=== PATIENT | female | born 1945 | race Caucasian/White ===

== ENCOUNTER 2021-08-19 06:49 | Inpatient (IN) ==
--- NOTE | 2021-08-09 16:07 | Anesthesiology Consultation ---
Date of Service August 09, 2021 Assessment & Plan (1) Encounter for pre-operative examination: Chart Review Chart Review: Acceptable Risk for Surgery (pending preop Covid testing results ) and Patient NOT seen in Pre Admission Testing Per nursing assessment 08-29, patient denies any recent travel. No known COVID infection in the past 90 days. Patient is fully vaccinated for COVID. No known Covid positive exposures or Covid related symptoms. Preop Covid testing scheduled 08/17/21= will await results Per cardio letter 04/06/2021 = patient is low to moderate risk for cardiac complications during proposed surgery. Optimal cardiac monitoring is required during the procedure. Patient seen by PCP 03/23/2021 = seen for preoperative examination. Patient reported new onset chest pain at preop appointment. Chest pain is since resolved. Last nuclear stress test in June 2020 was normal. Patient will need cardiology clearance/optimization prior to surgery. Based on patient's past medical history and RCRI 1 which is a 6% 30-day risk of [place], , cardiac arrest. (Did speak with patient on 08/09/21- no recent chest pain or cardiac issues- feeling well- recent ECHO done per surgeon's request per patient) History Surgery Operation Date: 08/19/21 07:00 Proposed Procedures p Right Total Knee Arthroplasty - Cosme Christine MD Height/Weight Height: 5 ft 7 in Weight: 97.522 kg Allergies Allergy/AdvReac Type Severity Reaction Status Date / Time penicillin G Allergy Mild rash Verified 08/09/21 09:52 Sulfa (Sulfonamide Allergy Mild rashes Verified 08/09/21 09:52 Antibiotics) Medications Home Medications Medication Instructions Recorded Confirmed Last Taken flecainide 50 mg tablet 50 mg PO BID tab 08/11/20 08/09/21 Unknown furosemide 20 mg tablet 20 mg PO DAILY PRN 08/11/20 08/09/21 Unknown metoprolol succinate 25 mg 25 mg PO QAM 08/11/20 08/09/21 Unknown tablet,extended release 24 hr rivaroxaban 20 mg tablet (Xarelto) 20 mg PO QAM 03/16/21 08/09/21 Unknown meloxicam 7.5 mg tablet 7.5 mg PO QAM #30 tab 06/30/21 08/09/21 Unknown Past Medical History Medical History (Updated 08/09/21 @ 16:21 by Berna Neville PA-C) Atrial fibrillation On Xarelto/Flecainide daily---follows with Dr. Duran History of COVID-19 Diagnosed 03/2020 @ [facility] [place]--severe diarrhea/loss of appetite/loss of taste/headache/cough/dehydration--no issues now HTN (hypertension) Controlled, stable per pt On anticoagulant therapy Xarelto daily Vertigo - Chronic per PCP note, improved with physical therapy per pt, occasional intermittent dizziness and imbalance with positional changes - Stable at this time per patient Past Family History Family History Mother Heart disease Breast cancer Hypertension Father Heart disease Hypertension Other No family history of adverse response to anesthesia Denies family history of Diabetes Alzheimer disease Dementia Myocardial infarction Congenital kidney disease Lung cancer COPD (chronic obstructive pulmonary disease) Stroke Asthma Past Surgical History Surgical History H/O section History of bilateral cataract extraction History of colonoscopy History of dilatation and curettage History of left inguinal hernia repair History of tooth extraction History of umbilical hernia repair History of varicose vein ligation History of wisdom tooth extraction Social History Smoking Status: Never smoker Do You Dip or Chew Tobacco: No Hx Alcohol Use: Yes alcohol intake frequency: holidays/special occasions only Hx Substance Use: No substance use type: does not use Lab Results Anesthesia Preop Results Results Anesthesia Widget: WBC 6.06 K/uL (4.8-10.8) 07/22/21 Hgb 14.0 g/dL (12.0-16.0) 07/22/21 Hct 42.8 % (37-47) 07/22/21 Plt 284 K/uL (130-400) 07/22/21 Na 138 mmol/L (136-145) 07/22/21 K 3.9 mmol/L (3.5-5.1) 07/22/21 Cl 102 mmol/L (98-107) 07/22/21 CO2 30 mmol/L (21-32) 07/22/21 BUN 20 mg/dl (6-23) 07/22/21 Creat 0.82 mg/dl (0.6-1.2) 07/22/21 Glucose Level 115 mg/dl (70-99(Fasting)) H 07/22/21 PT 12.3 Seconds (9.0-12.0) H 07/22/21 PTT 34.3 Seconds (21.0-31.0) H 07/22/21 INR 1.2 (0.9-1.1) H 07/22/21 HA1c 5.2 % (4.5-5.6) 07/22/21 Urine Color Yellow 07/27/21 Urine Appearance Clear (Clear) 07/27/21 Urine pH 5.5 (4.5-7.5) 07/27/21 Urine Specific [place] 1.008 (1.000-1.030) 07/27/21 Urine Protein Negative (Negative) 07/27/21 Urine Glucose (UA) Negative (Negative) 07/27/21 Urine Ketones Negative (Negative) 07/27/21 Urine Blood Negative (Negative) 07/27/21 Urine Nitrite Negative (Negative) 07/27/21 Urine Bilirubin Negative (Negative) 07/27/21 Urine Urobilinogen Negative (Negative) 07/27/21 Urine Leukocyte Esterase Negative (Negative) 07/27/21 Testing Electrocardiogram Date: 03/19/21 Sinus bradycardia, rate 51 bpm. Left anterior fascicular block. Chest X-Ray Date: 03/19/21 No acute cardiopulmonary disease. Echocardiogram Date: 07/29/21 EF: 60% LV Function: normal Other Findings: + diastolic dysfunction (Grade 2) Left atrium moderately dilated. RV ventricle is mildly dilated with normal systolic function. Right atrium is mildly dilated. Mild to moderate MR. Mild TR. PASP = 35 mmHg. Mild PA. Stress Test Date: 07/07/20 Type: nuclear Good quality study. Normal gated MPI wall motion and EF. No significant rest or stress-induced MPI defects. No evidence of myocardial ischemia or infarct. Low risk study. No change from prior study dated 10/14/2016. Lexiscan stress EKG was negative for myocardial ischemia Other Testing Lower extremity arterial duplex 02/25/2021 = no significant stenosis to the right and left lower extremity arteries. Head CT 02/27/2021= No acute intracranial abnormality or significant interval change.
--- NOTE | 2021-08-15 09:19 | History & Physical Report ---
Date of Service August 15, 2021 Assessment & Plan (1) Primary osteoarthritis of right knee: Plan: Treatment options discussed with the patient. She has failed conservative measures. She has end-stage osteoarthritis. She would like to proceed with knee replacement. Risks, benefits and alternatives to surgery including but not limited to infection, DVT, pain, stiffness, need for revision surgery, damage to blood vessels, damage to nerves, PE, , were discussed with the patient and they wish to proceed. We will plan on Xarelto postoperatively for DVT prophylaxis. Plan on outpatient therapy postop. Due to insurance patient require full admit postop as opposed to observation. All questions answered. Patient will follow-up postop. History of Present Illness Chief Complaint: Right knee pain Primary Care Provider: NO PCP 75-year-old female with past medical history significant for A. fib, hypertension, who presents with longstanding right knee pain. She has failed conservative measures including therapy and injections. Pain is interfering with her daily activities. She would like to proceed with knee replacement. Patient denies headaches, sweats, fevers, chills, double vision, blurred vision, cough, sore throat, dysphagia, chest pain, sob, wheezing, n/v/d/c, numbness, tingling, fatigue, urinary symptoms, mood disorders. ROS positive for right knee pain and stiffness. Allergies Allergy/AdvReac Type Severity Reaction Status Date / Time penicillin G Allergy Mild rash Verified 08/09/21 09:52 Sulfa (Sulfonamide Allergy Mild rashes Verified 08/09/21 09:52 Antibiotics) Home Medications Medication Instructions Recorded Confirmed Type flecainide 50 mg tablet 50 mg PO BID tab 08/11/20 08/09/21 History furosemide 20 mg tablet 20 mg PO DAILY PRN 08/11/20 08/09/21 History metoprolol succinate 25 mg 25 mg PO QAM 08/11/20 08/09/21 History tablet,extended release 24 hr rivaroxaban 20 mg tablet (Xarelto) 20 mg PO QAM 03/16/21 08/09/21 History meloxicam 7.5 mg tablet 7.5 mg PO QAM #30 tab 06/30/21 08/09/21 Rx Past Med/Surg History Medical History (Updated 08/15/21 @ 09:23 by Jonathan Pena PA-C) Atrial fibrillation On Xarelto/Flecainide daily---follows with Dr. Duran History of COVID-19 Diagnosed 03/2020 @ [facility] [place]--severe diarrhea/loss of appetite/loss of taste/headache/cough/dehydration--no issues now HTN (hypertension) Controlled, stable per pt On anticoagulant therapy Xarelto daily Vertigo - Chronic per PCP note, improved with physical therapy per pt, occasional intermittent dizziness and imbalance with positional changes - Stable at this time per patient Surgical History H/O section History of bilateral cataract extraction History of colonoscopy History of dilatation and curettage History of left inguinal hernia repair History of tooth extraction History of umbilical hernia repair History of varicose vein ligation History of wisdom tooth extraction Family History Mother Heart disease Breast cancer Hypertension Father Heart disease Hypertension Other No family history of adverse response to anesthesia Denies family history of Diabetes Alzheimer disease Dementia Myocardial infarction Congenital kidney disease Lung cancer COPD (chronic obstructive pulmonary disease) Stroke Asthma Social History (System 07/09/21 @ 06:54 by Roxana Zavala) Smoking Status: Never smoker Second Hand Exposure: No; Hx Alcohol Use: Yes Hx Substance Use: No Preferred Language: Polish Communication Ability: Effective Hearing Ability: Normal Exterior Designer Required: No Beliefs That Will Affect Care: None marital status: Single Current Living Situation: Significant Other current occupational status: retired How many Children do You have: 0 Feels Safe at Home: Yes Childhood Exposure to Second-Hand Smoke: Yes caffeine: Yes Dental Care, Regularly: Yes Physical Activity Frequency: 1-2 Times per Week Seatbelt Use: always Sunscreen Use: No Assistive Devices: Cane and Glasses Review of Systems All systems reviewed & are unremarkable except as noted in HPI & below Physical Exam Constitutional: well developed and well nourished; no acute distress Eyes: PERRL, conjunctivae normal, anicteric sclerae ENMT: external ear and nose normal, oropharynx normal Neck: trachea midline, no thyromegaly Respiratory: normal respiratory effort, lungs clear to auscultation Cardiovascular: RRR, no murmur, no edema Musculoskeletal: Right knee: Varus alignment. Moderate effusion. Tenderness medial joint line and medial patellar facet as well as lateral patellar facet. Moderate swelling. Moderate crepitation. Positive Nida's, positive Elpidio's, laxity with valgus and varus stress test. Range of motion is 10 to 120 degrees. Skin: no rashes, warm and dry Neurologic: patellar DTR's 2+ bilat, sensation intact Psychiatric: A+Ox3, euthymic affect Results & Data ([facility]) Diagnostic Findings Right knee: [id number] medial compartment. There is mild subluxation of femur and tibia. She has periarticular osteophyte formation and subchondral sclerosis. There is tricompartmental degenerative changes.
[~2021-08-19 06:49] MED LIST: ACETAMINOPHEN 500 MG TAB PO SCH; BUPIVACAINE 0.5 % 5 MG/1 ML PF 10ML VIAL ONE; FAMOTIDINE 20 MG TAB PO SCH; GABAPENTIN 300 MG CAP PO SCH; LR 500ML BOLUS, THEN 15ML/HR IV SCH; METOCLOPRAMIDE HCL 10 MG TABLET PO SCH; ROPIVACAINE 0.5% 5 MG/ML 30 ML VIAL ONE; ROPIVACAINE 0.5% HCL/PF 150 MG, BUPIVACAINE 0.75% MPF 20 ML, EPINEPHrine 30MG/30ML (OR ... INSTIL SCH; TRANEXAMIC ACID 1,000 MG **IV Intra-op IV SCH; TRANEXAMIC ACID 1,000 MG **IV Pre-op IV SCH; VANCOMYCIN HCL 1,500 MG in SODIUM CHLORIDE 0.9% 500 ML IV SCH; dexAMETHasone 4 MG TAB PO SCH
[2021-08-19] MEDS ORDERED: ORTHO JOINT ANESTHETIC ONE (06:58)
[2021-08-19] MEDS ORDERED: fentaNYL citrate 100 MCG/2 ML VIAL ONE (07:30)
[2021-08-19] MEDS ORDERED: LIDOCAINE 2% 2 ML VIAL/AMP(20MG/ML) INFIL ONE (07:30)
[2021-08-19] MEDS ORDERED: MIDAZOLAM HCL 1 MG/ML 2ML VIAL ONE (07:30)
[2021-08-19] MEDS ORDERED: PROPOFOL IV EMULSION 10 MG/ML 20 ML VIAL IV ONE (07:30)
--- NOTE | 2021-08-19 07:32 | History & Physical Bridge Note ---
Date of Service August 19, 2021 History & Physical Bridge Note I have examined the patient, reviewed the History & Physical and in the interval since the performance of the History & Physical I have noted the following changes of clinical significance: no changes noted
[2021-08-19] MEDS ORDERED: DEXAMETHASONE SOD INJ 4 MG/ML VIAL ONE (07:37)
[2021-08-19] MEDS ORDERED: ATROPINE SULFATE 0.1 MG/ML 10ML SYR IV PRN (08:07)
[2021-08-19] MEDS ORDERED: fentaNYL citrate 100 MCG/2 ML VIAL IV PRN (08:07)
[2021-08-19] MEDS ORDERED: ePHEDrine sulfate 50 MG/ML AMP IV PRN (08:07)
[2021-08-19] MEDS ORDERED: ONDANSETRON INJ 2 MG/ML 2 ML VIAL IV PRN ×2 (08:07→12:50)
--- NOTE | 2021-08-19 11:18 | Operative Report ---
Post Operative Report Pre & Post Diagnosis Operation Date: 08/19/21 09:15 Pre-Op Diagnosis: Right Knee Osteoarthritis, obesity of the knee and thigh area Post-Op Diagnosis: Right Knee Osteoarthritis, obesity knee and thigh area I identified the patient and participated in the time-out.: Yes Procedure Operation Date: 08/19/21 09:15 Actual Procedures p Right Total Knee Arthroplasty(Right), superficial wound VAC, increased level difficulty due to obesity about the knee area. Cosme Christine MD Surgeon Cosme Christine MD Design Agent Roberto PADILLA Estimated Blood Loss 10 Findings Consistent with Post-Op Diagnosis Specimens Bone cuts Drains 2 Hemovac Anesthesia Type MAC Spinal Regional Complications none Disposition Disposition: Recovery Room Indications 75-year-old female progressive osteoarthritis in her right knee. Patient has tricompartmental osteoarthritis [id number] medial lateral compartments and patellofemoral joint with bone loss patella and medial compartment. Description of Procedure Patient was taken to the operating room placed supine on the operating table and anesthetized under spinal MAC regional block anesthesia. Exam under anesthesia demonstrated patient an obese knee obese thigh with thick fat overlying the knee. There is [id number] crepitation range of motion and no pseudolaxity but patient had significant hyperextension of the knee. A pneumatic tourniquet was placed about the obese thigh of the right lower extremity. The right lower extremity was prepped and draped in usual sterile fashion. The leg was elevated exsanguinated with an Esmarch bandage and the pneumatic tourniquet was raised to 350 mm mercury. An anterior incision was made across the right knee. The skin was incised longitudinally subcutaneous flaps were elevated and an incision was made through the medial retinaculum extending up into the mid third of the quadriceps tendon and extended down to the medial tibial tubercle. Intra- articular findings demonstrated severe tricompartmental osteoarthritis [id number] medial and lateral compartments due to subluxation. There was eburnated bone bone loss medial compartment bone loss patella with thinning of the patella. There are tricompartmental osteophytes. Chronic ACL tear. Chronic meniscal tears. The knee was exposed by excising the infrapatellar fat pad, excising the meniscal remnants . Any inflamed synovial tissue was resected. The fat pad over the anterior femur was resected for placement of the component in that area. The lateral synovial bands were release. The femur was exposed. The custom femoral cutting block was pinned in position. The distal femoral cutting block was applied. The distal femoral cut was made with the osc illating saw. The size 9, 4-in-1 cutting block was placed. The anterior and posterior chamfer cuts were made. The knee was extended and a subperiosteal peel lateral release was performed around the patella. The patella width was measured and width was reproduced using freehand cut technique. The 32 x 8.5 millimeter symmetrical patella was used. 3 drill holes are made for the pegs. The tibia was exposed. A custom tibial cutting block was positioned and drill holes were made for the cutting guide. Cutting guide was placed and the proximal cut was made with the oscillating saw. All osteophytes were resected. The lamina conveyor feeder was used to assess ligamentous balance and the ligaments were balanced in extension and flexion. The tibia was reexposed and measured for a size E tibial component. This was externally rotated in line with the tibial tubercle and the fixation pins were drilled. The proximal tibia was fashioned with the drill and punch. The size 9 CR femoral trial was inserted. The trial MC inserts were used. The 16 mm insert gave balanced ligaments through full range of motion. Patient still has some mild hyperextension but improved from her preoperative hyperextension. The patella tracked centrally. the trials were removed. The orthomix anesthetic cocktail was injected per protocol. The knee was then copiously irrigated with pulsatile lavage saline so lution. The final components were cemented with Refobacin bone cement. The final components were Vicente persona size now right femoral component, E right tibia, 16mm polyethylene insert, 32 x 8.5 symmetrical patella after the cement cured with the knee in full extension the Betadine soak was used per protocol. The knee joint was copiously irrigated with pulsatile lavage saline solution . 2 drains were brought out laterally and connected to a Hemovac. The quadriceps tendon and medial retinaculum were closed with interrupted [id number] #1 Vicryl sutures. The knee was taken through a full range of motion and repair was secure. There was some mild MCL laxity noted at about 20 degrees of flexion with full stability in extension and flexion and this was felt to be acceptable. The subcutaneous tissues were closed with 2-0 Vicryl sutures and skin was closed with pam. Sterile dressings were applied and the patient tolerated the procedure well. Roberto PADILLA my physician care team assistant who acted as my pharmacy technician assistant and participated in all aspects of the procedure. He assisted in soft tissue retraction, instrument management ,leg positioning, the closure and application superficial wound VAC and will participate in the postoperative care of the patient. I attest to the content of the Intraoperative Record and any orders documented therein. Any exceptions are noted below.
--- NOTE | 2021-08-19 12:27 | Anesthesiology Progress Note ---
Date of Service August 19, 2021 Anesthesia Post Procedure Vital Signs Vital Signs: Temp Pulse Pulse Resp BP Pulse Ox 08/19/21 12:25 97.9 F 51 L 17 131/77 93 08/19/21 12:15 58 L 20 135/84 95 08/19/21 12:05 50 L 17 124/68 95 08/19/21 11:55 52 L 15 122/67 97 08/19/21 11:49 97.7 F 58 L 17 123/54 L 97 08/19/21 07:27 98.4 F 60 22 150/85 H 99 Transfer of Care Handoff Completed per policy Notes Mental Status: alert / awake / arousable and participated in evaluation Patient Amnestic to Procedure: Yes Nausea / Vomiting: adequately controlled Pain: adequately controlled Airway Patency, RR, SpO2: stable & adequate BP & HR: stable & adequate Hydration State: stable & adequate Neuraxial Anesthesia: was administered and sensory block is resolving Anesthetic Complications: no major complications apparent and Pt Satisfied with anesthetic care
[2021-08-19] MEDS ORDERED: HYDROmorphone INJ 0.5 MG/0.5 ML SYR IV PRN (12:50)
[2021-08-19] MEDS ORDERED: oxyCODONE HCL IR 5 MG TAB (IMMEDIATE RELEASE) PO PRN (12:50)
[2021-08-19] MEDS ORDERED: MAGNESIUM HYDROXIDE SUSP 30 ML UDC PO PRN (12:50)
[2021-08-19] MEDS ORDERED: FUROSEMIDE 20 MG TAB PO PRN (12:50)
[2021-08-19] MEDS ORDERED: bisacodyL 10 MG SUPP PR PRN (12:50)
[2021-08-19] MEDS ORDERED: NALOXONE HCL 0.4 MG/1 ML VIAL/CARP IV PRN (12:50)
[2021-08-19] MEDS ORDERED: VANCOMYCIN CONSULT ACTIVE PRN (12:50)
[2021-08-19] MEDS: SODIUM CHLORIDE 0.9% 1000ML 1,000 ML IV SCH ×2 (13:41→22:34)
[2021-08-19] MEDS: ACETAMINOPHEN 500 MG TAB PO SCH ×2 (14:58→22:20)
[2021-08-19] MEDS: FLECAINIDE ACETATE 100 MG TABLET PO SCH (20:19)
[2021-08-19] MEDS: SENNA 8.6 MG TAB PO SCH (20:19)
[2021-08-19] MEDS: DOCUSATE SODIUM 100 MG CAP PO SCH (20:19)
[2021-08-19] MEDS ORDERED: VANCOMYCIN HCL 1,500 MG in SODIUM CHLORIDE 0.9% 500 ML IV SCH (22:00)
[2021-08-20] MEDS: ACETAMINOPHEN 500 MG TAB PO SCH ×3 (06:12→21:29)
[2021-08-20 07:11] LABS: Hematocrit (blood only) 33.3 % (37-47); Hemoglobin 11.1 g/dL (12.0-16.0); Mean Corpuscular Hemoglobin 32.3 pg (25-34); Mean Corpuscular Hgb Conc 33.3 g/dL (32-36); Mean Corpuscular Volume 96.8 fL (80-100); Mean Platelet Volume 9.8 fL (7.4-10.4); Platelet Count 202 K/uL (130-400); RDW Coefficient of Variation 12.6 % (11.5-14.5); RDW Standard Deviation 44.7 fL (36.4-46.3); Red Blood Count 3.44 M/uL (4.2-5.4); White Blood Count 10.74 K/uL (4.8-10.8)
[2021-08-20 07:39] LABS: BUN Creatinine Ratio 26.2 (10-20); Calcium 8.5 mg/dl (8.5-10.1); Creatinine Clr Calc Pharmacy 89.2 ml/min; Est GFR (African American) 100.7 ml/min; Est GFR (Non-African American) 86.8 ml/min
[2021-08-20] MEDS: FLECAINIDE ACETATE 100 MG TABLET PO SCH ×2 (08:23→21:28)
[2021-08-20] MEDS: RIVAROXABAN 10 MG TABLET PO SCH ×2 (08:23→17:19)
--- NOTE | 2021-08-20 08:23 | Orthopedic Progress Note ---
Date of Service August 20, 2021 Assessment & Plan (1) Primary osteoarthritis of right knee: Plan: Postop day 1 status post right total knee arthroplasty PT/OT protocols. Weightbearing as tolerated. DVT prophylaxis-rivaroxaban p.o. daily, SCDs, SAMI richards. Pain management as written. DC planning-patient is planning for outpatient PT upon discharge. Possible discharge home today if patient's pain control remains adequate and physical therapy progression. Admission and Anticipated Discharge Date Admission Date: August 19, 2021 Subjective Postop day 1 Patient sitting up in bed awake and alert. She is feeling well today. Minimal to no discomfort this morning. She denies shortness of breath, chest pain, lightheadedness. Physical Exam Physical Exam: Dressings are clean, dry, and intact. Calves are soft and nontender. Neurovascular is intact. Toes are mobile. She has good dorsiflexion and plantarflexion of the right foot. She has had approximately 100 mL of drainage from her Hemovac drain from the previous shift. Results & Data ([facility]) Vital Signs (Past 12 Hours) Vital Signs Temp Pulse Resp BP Pulse Ox 08/20/21 07: 36.7 C 67 16 135/79 90 08/20/21 02:50 37.0 C 67 16 101/65 92 08/19/21 22:53 36.8 C 54 L 16 122/83 93 08/19/21 20:51 36.5 C 57 L 16 106/63 92 Laboratory Results Laboratory Results WBC 10.74 K/uL (4.8-10.8) 08/20/21 07:01 RBC 3.44 M/uL (4.2-5.4) L 08/20/21 07:01 Hgb 11.1 g/dL (12.0-16.0) L 08/20/21 07:01 Hct 33.3 % (37-47) L 08/20/21 07:01 MCV 96.8 fL (80-100) 08/20/21 07:01 MCH 32.3 pg (25-34) 08/20/21 07:01 MCHC 33.3 g/dL (32-36) 08/20/21 07:01 RDW Std Deviation 44.7 fL (36.4-46.3) 08/20/21 07:01 RDW Coeff of Anju 12.6 % (11.5-14.5) 08/20/21 07:01 Plt Count 202 K/uL (130-400) 08/20/21 07:01 MPV 9.8 fL (7.4-10.4) 08/20/21 07:01 Sodium 138 mmol/L (136-145) 08/20/21 07:01 Potassium 4.0 mmol/L (3.5-5.1) 08/20/21 07:01 Chloride 109 mmol/L (98-107) H 08/20/21 07:01 Carbon Dioxide 24 mmol/L (21-32) 08/20/21 07:01 Anion Gap 5 (3-11) 08/20/21 07:01 BUN 17 mg/dl (6-23) 08/20/21 07:01 Creatinine 0.65 mg/dl (0.6-1.2) 08/20/21 07:01 Est Cr Clr Drug Dosing 89.2 ml/min 08/20/21 07:01 Est GFR ( Amer) 100.7 ml/min 08/20/21 07:01 Est GFR (Non-Af Amer) 86.8 ml/min 08/20/21 07:01 BUN/Creatinine Ratio 26.2 (10-20) H 08/20/21 07:01 Glucose 106 mg/dl (70-99(Fasting)) H 08/20/21 07:01 Calcium 8.5 mg/dl (8.5-10.1) 08/20/21 07:01 SARS-CoV-2, RNA, NAAT NEGATIVE (NEGATIVE) 08/19/21 07:34 Blood Type O Positive 08/19/21 07:15 Antibody Screen NEGATIVE 08/19/21 07:15
[2021-08-20] MEDS: METOPROLOL SUCC 25MG EXT REL TAB PO SCH (08:24)
[2021-08-20] MEDS: MULTIVITAMIN TAB PO SCH (08:24)
--- NOTE | 2021-08-20 09:17 | XRay Report ---
RIGHT KNEE 2 VIEWS History: Right total knee arthroplasty. Degenerative arthritis. Postop. FINDINGS: The patient is status post a right total knee arthroplasty. The hardware is intact. No frac ture or dislocation. Skin pam and surgical drains are in place. IMPRESSION: Right total knee arthroplasty. No evidence for hardware complication. ACT 112: Negative or not required by law. Electronically signed by: Pedro Sahu M.D. 08/19/2021 12:28 PM
[2021-08-20] MEDS: DOCUSATE SODIUM 100 MG CAP PO SCH ×2 (10:04→21:26)
--- NOTE | 2021-08-20 11:33 | Hospitalist Consultation ---
Date of Consultation August 20, 2021 Assessment & Plan (1) Status post total knee replacement: - POD#1 - Pain control, would recommend stopping OxyIR and utilizing Tramadol * D/w ortho MARY LOU, in agreement, will send rx to pharmacy - Recommend use of incentive spirometer q1h while awake for atelectasis/pna prevention - PT/OT - Hemovac removal per ortho - DVT ppx will be adequately covered with resumption of Xarelto - F/U with orthopedics as directed (2) Atrial fibrillation: - Paroxysmal, examines in NSR - Continue Flecainide and Toprol - Resume Xarelto 20mg daily (3) HTN (hypertension): - Well controlled on Toprol XL No additional recommendations at this time. At this point, pt is medically stable for discharge. Discussed my recommendations with ortho MARY LOU, rx for Tramadol has been sent to pharmacy. Advise f/u with pcp within 1 week of discharge. F/u with orthopedics as directed. Thank you for allowing us to participate in the care of this patient, will sign off. Please feel free to reach out if any additional questions or needs arise. Plan d/w Dr. Melvin. Supervising Physician Co-Signing Physician Notes Patient seen and examined case discussed with MARY LOU Philip. 75-year-old female with history of hypertension, A. fib, and osteoarthritis who presented for total knee replacement. A. fib is controlled with flecainide and Toprol, NSR at assessment. Regular rate, symmetrical chest rise, no acute distress. Continue DOAC anticoagulation. DVT prophylaxis, ambulation recommendations, postsurgical wound management, and pain control per primary orthopedic team, agree with recommendation for transition to tramadol as needed. History of Present Illness Reason for Consultation: medical management Requesting Physician: Dr. Christine Attending Physician: Cosme Christine MD History of Present Illness Lorena Krishnan is a pleasant 75 yo WF w/ a pmhx of paroxysmal afib who is on chronic ACT w/ Xarelto, as well h/o HTN, and OA who presented from home for elective right TKA d/t uncontrolled pain that failed conservative measures. Pt was taken to the OR on 08/19 and underwent a right TKA by Dr. Christine. She had an uneventful perioperative course. Is currently seen POD#1 for medical management. Presently, pt reports pain in right knee is controlled, does admit to feeling tired and foggy. Was medicated with AM for pain with Oxycodone. She denies chest pain, dyspnea, n/v/d, f/c, headache, or gu symptoms. She is passing flatus but has not yet had a BM. She lives in a one story home with a significant other, no steps to enter. Plans to return home if she is cleared by PT/OT. Has no previous history of PE or DVT. No questions/concerns at this time. Hospitalists consulted for routine medical management. Allergies Allergy/AdvReac Type Severity Reaction Status Date / Time penicillin G Allergy Severe rash Verified 08/19/21 07:24 Sulfa (Sulfonamide Allergy Severe rashes Verified 08/19/21 07:24 Antibiotics) Home Medications Medication Instructions Recorded Confirmed Type flecainide 50 mg tablet 50 mg PO BID tab 08/11/20 08/19/21 History furosemide 20 mg tablet 20 mg PO DAILY PRN 08/11/20 08/19/21 History metoprolol succinate 25 mg 25 mg PO QAM 08/11/20 08/19/21 History tablet,extended release 24 hr rivaroxaban 20 mg tablet (Xarelto) 20 mg PO QAM 03/16/21 08/19/21 History meloxicam 7.5 mg tablet 7.5 mg PO QAM #30 tab 06/30/21 08/19/21 Rx acetaminophen 500 mg tablet 1,000 mg PO Q8 14 Days #84 tab 08/20/21 Rx (Tylenol Extra Strength) polyethylene glycol 3350 17 gram 17 g PO DAILY PRN #5 ea 08/20/21 Rx oral powder packet (Miralax) tramadol 50 mg tablet 50 mg PO Q4H PRN #15 tab 08/20/21 Rx Patient History Medical History Atrial fibrillation On Xarelto/Flecainide daily---follows with Dr. Duran History of COVID-19 Diagnosed 03/2020 @ [facility] [place]--severe diarrhea/loss of appetite/loss of taste/headache/cough/dehydration--no issues now HTN (hypertension) Controlled, stable per pt On anticoagulant therapy Xarelto daily Vertigo - Chronic per PCP note, improved with physical therapy per pt, occasional intermittent dizziness and imbalance with positional changes - Stable at this time per patient Surgical History (Updated 08/20/21 @ 11:27 by Haydee Philip PA-C) H/O section History of bilateral cataract extraction History of colonoscopy History of dilatation and curettage History of left inguinal hernia repair History of tooth extraction History of umbilical hernia repair History of varicose vein ligation History of wisdom tooth extraction Family History Mother Heart disease Breast cancer Hypertension Father Heart disease Hypertension Other No family history of adverse response to anesthesia Denies family history of Diabetes Alzheimer disease Dementia Myocardial infarction Congenital kidney disease Lung cancer COPD (chronic obstructive pulmonary disease) Stroke Asthma Social History (System 07/09/21 @ 06:54 by Roxana Zavala) Smoking Status: Never smoker Second Hand Exposure: No; Do You Dip or Chew Tobacco: No; Tobacco Cessation Education Requested by Patient: No Hx Alcohol Use: Yes Hx Substance Use: No Preferred Language: Luxembourgish Communication Ability: Effective Hearing Ability: Normal Credit Counselor Required: No Beliefs That Will Affect Care: None marital status: Single Current Living Situation: Significant Other current occupational status: retired How many Children do You have: 0 Other Information That Helps Us Care for You: No Feels Safe at Home: Yes Safety Concerns: Feels Safe At This Time Childhood Exposure to Second-Hand Smoke: Yes caffeine: Yes Dental Care, Regularly: Yes Physical Activity Frequency: 1-2 Times per Week Seatbelt Use: always Sunscreen Use: No Assistive Devices: Walker Review of Systems Review of Systems: All systems reviewed and are unremarkable except as noted in HPI and below. Denies fever, chills, fatigue, headache, nasal congestion, sore throat, cough, chest pain, shortness of breath, palpitations, orthopnea, PND, abdominal pain, n/v/d, constipation, dysuria, hematuria, frequency, back pain, easy bruising or bleeding, skin lesions or rashes. Physical Exam Physical Exam: GENERAL: 75 yo well-developed overweight WF. NAD. LUNGS: Clear to auscultation bilaterally. No W/R/R. CARDIOVASCULAR: Regular rate and rhythm. No M/G/R. No JVD. ABDOMEN: Soft, non-tender and non-distended. BS normal x 4 quad. EXTREMITIES: No edema. Peripheral pulses +2/4. R knee is dressed (shonda dressing in place) and wrapped in CHARMAINE. Hemovac visualized. No calf tenderness. Neg kiah's. NEUROLOGIC: A&O x3. PSYCHIATRIC: Cooperative. Appropriate mood and affect. SKIN: Warm, dry, intact. No rashes or lesions. Results & Data Results & Data ([facility]) Vital Signs (Past 12 Hours) Vital Signs Temp Pulse Resp BP Pulse Ox 08/20/21 07:22 36.7 C 67 16 135/79 90 08/20/21 02:50 37.0 C 67 16 101/65 92 Laboratory Results 08/20/21 07:01 08/20/21 07:01 Diagnostic Findings Knee X-Ray 08/19/21 11:58 RIGHT KNEE 2 VIEWS History: Right total knee arthroplasty. Degenerative arthritis. Postop. FINDINGS: The patient is status post a right total knee arthroplasty. The hardware is intact. No fracture or dislocation. Skin pam and surgical drains are in place. IMPRESSION: Right total knee arthroplasty. No evidence for hardware complication. ACT 112: Negative or not required by law. Electronically signed by: Pedro Sahu M.D. 08/19/2021 12:28 PM PG Care Time/CCT Total # of Minutes Spent Total Time Spent with Patient: Total time spent is greater than 50% in coordination of care (as documented) at patient's floor/unit and/or counseling patient: Coding Level of Care Code 70193 Inpt Consult Level 4 Diagnoses Status post total knee replacement Z96.659 Atrial fibrillation I48.91 HTN (hypertension) I10
[2021-08-20] MEDS ORDERED: RIVAROXABAN 20 MG TAB PO SCH (16:30)
[2021-08-20] MEDS: traMADol HCL 50 MG TABLET PO PRN ×2 (17:18→21:26)
[2021-08-20] MEDS: SENNA 8.6 MG TAB PO SCH (21:27)
[2021-08-21] MEDS: traMADol HCL 50 MG TABLET PO PRN ×2 (02:58→12:53)
--- NOTE | 2021-08-21 05:57 | Orthopedic Progress Note ---
Date of Service August 21, 2021 Assessment & Plan (1) Status post total knee replacement: Plan: Postop day 2 status post right total knee arthroplasty PT/OT protocols. Weightbearing as tolerated. DVT prophylaxis-rivaroxaban p.o. daily, SCDs, SAMI richards. Pain management as written. DC planning-patient is planning for outpatient PT upon discharge, d/c home today Admission and Anticipated Discharge Date Admission Date: August 20, 2021 Subjective Postop day 2 s/p Right TKA Review of Systems Constitutional: no fever and no chills Respiratory: no cough and no dyspnea Cardiovascular: no chest pain, no dyspnea and no orthopnea Gastrointestinal: no abdominal pain, no nausea and no vomiting Physical Exam Physical Exam: Vital Signs Temp 36.9 C 08/20/21 22:47 Pulse 56 L 08/20/21 22:47 Resp 16 08/20/21 22:47 BP 138/77 08/20/21 22:47 Pulse Ox 93 08/20/21 22:47 Intake & Output 08/20/21 08/20/21 08/21/21 06:59 18:59 06:59 Intake Total 2980 / 5310 Output Total 700 / 1550 150 / 150 Balance 2280 / 3760 -150 / -150 Intake: IV 2530 / 3260 Sodium Chlorid e 0.9% 1000ML 1, 2000 / 2000 000 ml @ 100 m ls/hr IV .Q10H GERALDINE Rx#:[id number] Vancomycin HCl 1,500 mg In 530 / 530 Sodium Chlorid e 0.9% 500 ml @ 200 mls/hr IV Q12H GERALDINE Rx#: [id number] Oral 450 / 450 Output: Urine 400 / 1200 Drain Output 300 / 340 150 / 150 Right Knee 300 / 340 150 / 150 Other: # Unmeasured Voi ds 1 1 1 Musculoskeletal: Right Knee: NVDI, calf SNT, negative kiah sign. DP palpable, able to wiggle toes/ankle movement without difficulty. ANTHONY dressing clean dry and intact. expected post-operative bruising noted. Results & Data ([facility]) Vital Signs (Past 12 Hours) Vital Signs Temp Pulse Resp BP Pulse Ox 08/20/21 22:47 36.9 C 56 L 16 138/77 93 08/20/21 21:25 63 135/75
[2021-08-21] MEDS: ACETAMINOPHEN 500 MG TAB PO SCH ×2 (05:58→12:53)
[2021-08-21] MEDS: FLECAINIDE ACETATE 100 MG TABLET PO SCH (07:56)
[2021-08-21] MEDS: METOPROLOL SUCC 25MG EXT REL TAB PO SCH (07:56)
[2021-08-21] MEDS: DOCUSATE SODIUM 100 MG CAP PO SCH (07:56)
[2021-08-21] MEDS: MULTIVITAMIN TAB PO SCH (07:56)
== END 2021-08-21 14:10 | disposition home or self-care (01) | DRG 470 ==
LOC: 3E 06:49 → ASU 06:49 → MERGE 07:00

== ENCOUNTER 2022-09-14 07:04 | Observation (INO) ==
--- NOTE | 2022-08-25 13:25 | PAT Medication Instructions ---
Medication Instructions Date of Service August 25, 2022 Home Medications flecainide 50 mg tablet 50 mg PO BID metoprolol succinate 25 mg tablet,extended release 24 hr 25 mg PO QAM rivaroxaban 20 mg tablet (Xarelto) 20 mg PO QAM acetaminophen 650 mg tablet,extended release 1,300 mg PO Q8H PRN Pain anastrozole 1 mg tablet 1 mg PO QAM cholecalciferol (vitamin D3) 25 mcg (1,000 unit) capsule 25 mcg PO BID ASK your prescriber and surgeon anastrozole 1 mg tablet 1 mg PO QAM rivaroxaban 20 mg tablet (Xarelto) 20 mg PO QAM (in order for spinal anesthesia, rivaroxaban/Xarelto needs to be stopped 72 hours/3 days before surgery. Please check if okay with doctor that prescribes this to you) DO NOT take the morning of surgery cholecalciferol (vitamin D3) 25 mcg (1,000 unit) capsule 25 mcg PO BID Take morning of surgery With a small sip of water, OTHERWISE NOTHING TO EAT OR DRINK AFTER MIDNIGHT: flecainide 50 mg tablet 50 mg PO BID metoprolol succinate 25 mg tablet,extended release 24 hr 25 mg PO QAM acetaminophen 650 mg tablet,extended release 1,300 mg PO Q8H PRN Pain (if needed) Take evening before surgery flecainide 50 mg tablet 50 mg PO BID acetaminophen 650 mg tablet,extended release 1,300 mg PO Q8H PRN Pain (if needed) cholecalciferol (vitamin D3) 25 mcg (1,000 unit) capsule 25 mcg PO BID Other Notes If you have any questions please call us at [phone] or [phone] or [phone] or [phone]
--- NOTE | 2022-09-01 11:52 | Anesthesiology Consultation ---
Date of Service September 01, 2022 Assessment & Plan (1) Encounter for pre-operative examination: Chart Review Chart Review: Acceptable Risk for Surgery and Patient seen in Pre Admission Testing - Pt is NOT an OPJ candidate due to age and comorbidities Left arm restriction Per PAT appt on 09/01/22, patient denies any recent travel or large group activities. Pt is vaccinated for Covid. Will leave to surgeon's discretion if preop Covid testing needed. Educated on importance of using Covid precautions one week prior to surgery Per cardio clearance letter 07/19/22= Patient is "low to moderate risk" for cardiac complications for proposed surgery. Pt may hold Xarelto 3 days prior to surgery Pt seen by PCP 07/01/22= seen for medical wellness exam. Callus of footwe will refer to podiatry. Atrial fibrillationfollows with cardiology. Hypertensionwell controlled in office. Breast cancerfollows with oncology. Degenerative arthritis of the kneescheduled for knee replacement in September. Follow-up in 6 months Patient last seen by cardiology 05/10/2022 = seen for cardiac evaluation. Patient underwent right TKA 2did well without any cardiac complication. In the process of being evaluated for left TKA. Paroxysmal atrial fibrillationcurrently maintaining NSR on flecainide. Hypertensioncurrently being treated. Functional class II dyspnea. Lower extremity varicose veins and venous insufficiency status post bilateral vein ablation. Continue current medi cations. Encouraged diet and exercise. Follow-up in 6 months. Teaching & Discussion Pre-Anesthesia Teaching/Discussion Notes: Instructed NPO after midnight before surgery,except medications with 15 cc of water. Medication instructions provided according to the PAT guidelines. History Surgery Operation Date: 09/14/22 07:15 Proposed Procedures p Left Total Knee Arthroplasty - Cosme Christine MD Height/Weight Height: 5 ft 6.5 in Weight: 100.9 kg Allergies Allergy/AdvReac Type Severity Reaction Status Date / Time penicillin G Allergy Severe rash Verified 08/25/22 10:19 Sulfa (Sulfonamide Allergy Severe rashes Verified 08/25/22 10:19 Antibiotics) Medications Home Medications Medication Instructions Recorded Confirmed Last Taken flecainide 50 mg tablet 50 mg PO BID 08/11/20 08/25/22 08/19/21 05:00 metoprolol succinate 25 mg 25 mg PO QAM 08/11/20 08/25/2208/19/22 05:00 tablet,extended release 24 hr rivaroxaban 20 mg tablet (Xarelto) 20 mg PO QAM 03/16/21 08/25/22 08/14/21 acetaminophen 650 mg 1,300 mg PO Q8H PRN Pain 08/25/22 08/25/22 Unknown tablet,extended release anastrozole 1 mg tablet 1 mg PO QAM 08/25/22 08/25/22 Unknown cholecalciferol (vitamin D3) 25 25 mcg PO BID 08/25/22 08/25/22 Unknown mcg (1,000 unit) capsule Past Medical History Medical History (Updated 09/01/22 @ 14:16 by Berna Neville PA-C) Atrial fibrillation On Xarelto/Flecainide daily---follows with Dr. Duran Ductal carcinoma in situ (DCIS) of left breast Fall 2021- S/p partial mastectomy and XRT No chemo ; no current issues Left arm restriction History of COVID-19 Diagnosed 03/2020 @ [facility]--severe diarrhea/loss of appetite/loss of taste/headache/cough/dehydration--no issues now HTN (hypertension) Controlled, stable per pt Hx MRSA infection YEARS AGO IN A WOUND, [place]. On anticoagulant therapy Xarelto daily Vertigo - Chronic per PCP note, improved with physical therapy per pt, occasional intermittent dizziness and imbalance with positional changes - Stable at this time per patient - no current issues Exercise / Class Metabolic Activity III < 4 Walking/Shop/Light housework (no chest pain or SOB with flat surface ambulation ) Past Family History Family History Mother Heart disease Breast cancer Hypertension Father Heart disease Hypertension Other No family history of adverse response to anesthesia Denies family history of Diabetes Alzheimer disease Dementia Myocardial infarction Congenital kidney disease Lung cancer COPD (chronic obstructive pulmonary disease) Stroke Asthma Past Surgical History Surgical History H/O section History of bilateral cataract extraction History of colonoscopy History of dilatation and curettage History of left inguinal hernia repair History of lumpectomy of left breast History of tooth extraction History of total right knee replacement History of umbilical hernia repair History of varicose vein ligation History of wisdom tooth extraction Past Anesthesia History No Hx of Anesthesia Complications and No Family Hx of Anesthesia Complications History of PONV No Hx of PONV and No Hx of Motion Sickness Social History Smoking Status: Never smoker Do You Dip or Chew Tobacco: No Hx Alcohol Use: Yes alcohol intake frequency: holidays/special occasions only Hx Substance Use: No substance use type: does not use Review of Systems Occ reflux- diet dependent - no meds needed Patient denies chest pain, shortness of breath, dyspnea on exertion, cough, wheezing, palpitations. No hx of seizures, stroke, IA, apnea/snoring. No hx of blood clots or blood transfusions Physical Exam Vital Signs VITALS BP 154/93 P 60 TEMP 97.7 SP02 95% RESP 16 Constitutional no acute distress ENMT Mouth: + small oral opening (mild); no TMJ clicking Thyromental Distance: > or= 3.5 Finger Breadths (3.5) Mallampati Class: III Missing molars Caps to side teeth and molars Neck + limited neck extension Respiratory normal respiratory effort; no respiratory distress Auscultation: lungs clear to auscultation bilaterally; no wheezes Cardiovascular Rate/Rhythm: regular rate and regular rhythm Heart Sounds: no murmur Vessels: no carotid bruit Musculoskeletal Spine: + pain with cervical ROM (headache with prolonged neck extension ) Extremities: extremities normal to inspection Psychiatric Orientation: alert Lab Results Anesthesia Preop Results Results Anesthesia Widget: WBC 4.82 K/ul (4.8-10.8) 09/01/22 Hgb 14.3 g/dl (12.0-16.0) 09/01/22 Hct 42.2 % (37.0-47.0) 09/01/22 Plt 241 K/uL (130-400) 09/01/22 Na 138 mmol/L (136-145) 09/01/22 K 4.3 mmol/L (3.5-5.1) 09/01/22 Cl 102 mmol/L (98-107) 09/01/22 CO2 28 mmol/L (21-32) 09/01/22 BUN 17 mg/dl (6-23) 09/01/22 Creat 0.69 mg/dl (0.6-1.2) 09/01/22 Glucose Level 87 mg/dl (70-99(Fasting)) 09/01/22 PT 12.8 Seconds (9.0-12.0) H 09/01/22 PTT 36.3 Seconds (21.0-31.0) H 09/01/22 INR 1.2 (0.9-1.1) H 09/01/22 Urine Color Yellow 09/01/22 Urine Appearance Clear (Clear) 09/01/22 Urine pH 6.5 (4.5-7.5) 09/01/22 Urine Specific [place] 1.010 (1.000-1.030) 09/01/22 Urine Protein Negative (Negative) 09/01/22 Urine Glucose (UA) Negative (Negative) 09/01/22 Urine Ketones Negative (Negative) 09/01/22 Urine Blood Negative (Negative) 09/01/22 Urine Nitrite Negative (Negative) 09/01/22 Urine Bilirubin Negative (Negative) 09/01/22 Urine Urobilinogen Negative (Negative) 09/01/22 Urine Leukocyte Esterase Negative (Negative) 09/01/22 Blood Type O Positive 09/01/22 Antibody Screen NEGATIVE 09/01/22 Testing Electrocardiogram Date: 09/01/22 SB with premature supraventricular complexes Incomplete RBBB LAFB Septal infract, age undetermined When compared to EKG from Mar 19, 2021- premature supraventricular complexes are now preset, septal infract is now present per cardio (EKG from cardio office from 05/10/22 - "cannot rule out septal infract"; pt approved for surgery by cardio) Chest X-Ray Date: 09/01/22 FINDINGS: The cardiac silhouette remains top normal in size. There is a mildly tortuous thoracic aorta. The lungs are clear. No pleural effusions. No pneumothorax. IMPRESSION: No significant change compared to the prior study. No acute process. Echocardiogram Date: 07/29/21 EF: 60% LV Function: normal Other Findings: + diastolic dysfunction (Grade 2) Left atrium moderately dilated. RV ventricle is mildly dilated with normal systolic function. Right atrium is mildly dilated. Mild to moderate MR. Mild TR. PASP = 35 mmHg. Mild NV. Stress Test Date: 07/07/20 Type: nuclear Good quality study. Normal gated MPI wall motion and EF. No significant rest or stress-induced MPI defects. No evidence of myocardial ischemia or infarct. Low risk study. No change from prior study dated 10/14/2016. Lexiscan stress EKG was negative for myocardial ischemia Other Testing Lower extremity arterial duplex 02/25/2021 = no significant stenosis to the right and left lower extremity arteries. COVID-19 Risk Screen Screening Information COVID-19 Screen Date: 09/01/22 Exposure 21 Days Family/Household +COVID Last 21 Days: No Exposure 10 Days Any COVID Exposure Last 10 Days: No Symptoms Last 10 Days Experienced COVID Sx Last 10 Days: No + COVID 0-90 Days COVID + in Last 0-90 Days: No Risk Plan COVID Risk Plan: No Risk Identified Patient Education COVID Preop Screening Education Complete: Yes
--- NOTE | 2022-09-08 08:07 | History & Physical Report ---
Date of Service September 08, 2022 Assessment & Plan (1) Primary osteoarthritis of left knee: Plan: Treatment options discussed with the patient. She has failed conservative measures and would like to proceed with surgical intervention. Risks, benefits and alternatives to surgery including but not limited to infection, DVT, pain, stiffness, need for revision surgery, damage to blood vessels, damage to nerves, PE, , were discussed with the patient and they wish to proceed. Plan for left total knee arthroplasty scheduled for 09/14/22 at [facility] with Dr. Christine. Plan on resuming home Xarelto post op for DVT prophylaxis. Plan on outpatient physical therapy. All questions answered. Patient will follow up post op. History of Present Illness Chief Complaint: Left knee pain Primary Care Provider: Debbie Moore, 76yo female with PMHx significant for HTN, a fib, prior right TKA who presents with ongoing left knee pain. Patient has failed conservative measures. Pain is interfering with daily activity. She would like to proceed with knee replacement. Patient denies headaches, sweats, fevers, chills, double vision, blurred vision, cough, sore throat, dysphagia, chest pain, sob, wheezing, n/v/d/c, numbness, tingling, fatigue, urinary symptoms, mood disorders. ROS positive for left knee pain and stiffness. Allergies Allergy/AdvReac Type Severity Reaction Status Date / Time penicillin G Allergy Severe rash Verified 09/07/22 10:13 Sulfa (Sulfonamide Allergy Severe rashes Verified 09/07/22 10:13 Antibiotics) Home Medications Medication Instructions Recorded Confirmed Type flecainide 50 mg tablet 50 mg PO BID 08/11/20 09/07/22 History metoprolol succinate 25 mg 25 mg PO QAM 08/11/20 09/07/22 History tablet,extended release 24 hr rivaroxaban 20 mg tablet (Xarelto) 20 mg PO QAM 03/16/21 09/07/22 History acetaminophen 650 mg 1,300 mg PO Q8H PRN Pain 08/25/22 09/07/22 History tablet,extended release anastrozole 1 mg tablet 1 mg PO QAM 08/25/22 09/07/22 History cholecalciferol (vitamin D3) 25 25 mcg PO BID 08/25/22 09/07/22 History mcg (1,000 unit) capsule Past Med/Surg History Medical History Atrial fibrillation Ductal carcinoma in situ (DCIS) of left breast History of COVID-19 HTN (hypertension) Hx MRSA infection On anticoagulant therapy Vertigo Surgical History H/O section History of bilateral cataract extraction History of colonoscopy History of dilatation and curettage History of left inguinal hernia repair History of lumpectomy of left breast History of tooth extraction History of total right knee replacement History of umbilical hernia repair History of varicose vein ligation History of wisdom tooth extraction Family History Mother Heart disease Breast cancer Hypertension Father Heart disease Hypertension Other No family history of adverse response to anesthesia Denies family history of Diabetes Alzheimer disease Dementia Myocardial infarction Congenital kidney disease Lung cancer COPD (chronic obstructive pulmonary disease) Stroke Asthma Social History Smoking Status: Never smoker Second Hand Exposure: Yes (HX); Do You Dip or Chew Tobacco: No; Hx Alcohol Use: Yes Hx Substance Use: No Preferred Language: Danish Communication Ability: Effective Hearing Ability: Normal Sand Drier Required: No Beliefs That Will Affect Care: None marital status: Single Current Living Situation: Spouse and Family current occupational status: retired How many Children do You have: 0 Feels Safe at Home: Yes Childhood Exposure to Second-Hand Smoke: Yes Diet: regular caffeine: Yes Dental Care, Regularly: Yes Physical Activity Frequency: 1-2 Times per Week Seatbelt Use: always Sunscreen Use: No Assistive Devices: Glasses Review of Systems All systems reviewed & are unremarkable except as noted in HPI & below Physical Exam Constitutional: well developed and well nourished; no acute distress Eyes: PERRL, conjunctivae normal, anicteric sclerae ENMT: external ear and nose normal, oropharynx normal Neck: trachea midline, no thyromegaly Respiratory: normal respiratory effort, lungs clear to auscultation Cardiovascular: Rate/Rhythm: regular rate and + irregularly irregular Heart Sounds: no murmur Musculoskeletal: Left knee: Valgus alignment. Tenderness medially and laterally. Moderate swelling/lymphedema. Stable to valgus and varus stress. ROM 0-125 degrees. Skin: no rashes, warm and dry Neurologic: patellar DTR's 2+ bilat, sensation intact Psychiatric: A+Ox3, euthymic affect Results & Data Diagnostic Findings Left knee radiographs: Tricompartmental degenerative changes, [id number] lateral compartment on flexion view.
[~2022-09-14 07:04] MED LIST changes: -BUPIVACAINE 0.5 % 5 MG/1 ML PF 10ML VIAL ONE; -ROPIVACAINE 0.5% 5 MG/ML 30 ML VIAL ONE
[2022-09-14] MEDS ORDERED: BUPIVACAINE 0.5 % 5 MG/1 ML PF 10ML VIAL ONE (07:32)
[2022-09-14] MEDS ORDERED: ROPIVACAINE 0.5% 5 MG/ML 30 ML VIAL ONE (07:32)
[2022-09-14] MEDS ORDERED: MIDAZOLAM HCL 1 MG/ML 2ML VIAL ONE (07:59)
[2022-09-14] MEDS ORDERED: fentaNYL citrate PF 100 MCG/2 ML VIAL ONE (07:59)
[2022-09-14] MEDS ORDERED: LIDOCAINE 2% 2 ML VIAL/AMP(20MG/ML) INFIL ONE (07:59)
[2022-09-14] MEDS ORDERED: PROPOFOL IV EMULSION 10 MG/ML 20 ML VIAL IV ONE ×4 (07:59→12:24)
[2022-09-14] MEDS ORDERED: DEXAMETHASONE SOD INJ 4 MG/ML VIAL ONE (07:59)
[2022-09-14] MEDS ORDERED: ONDANSETRON INJ 2 MG/ML 2 ML VIAL ONE (07:59)
--- NOTE | 2022-09-14 09:48 | History & Physical Bridge Note ---
Date of Service September 14, 2022 History & Physical Bridge Note I have examined the patient, reviewed the History & Physical and in the interval since the performance of the History & Physical I have noted the following changes of clinical significance: no changes noted
[2022-09-14] MEDS ORDERED: ORTHO JOINT ANESTHETIC ONE (10:29)
[2022-09-14] MEDS ORDERED: METOPROLOL TARTRATE 1 MG/ML VIAL IV ONE (12:24)
[2022-09-14] MEDS ORDERED: LABETALOL HCL IV 5 MG/ML 20ML IV ONE ×3 (12:27→12:36)
--- NOTE | 2022-09-14 13:20 | Post Operative Brief Note ---
Immediate Post Op Note v1 Date of Surgery September 14, 2022 Pre & Post Diagnosis Operation Date: 09/14/22 09:45 Pre-Op Diagnosis: Left knee osteoarthritis,localized obesity. Post-Op Diagnosis: Left knee osteoarthritis localized obesity. I identified the patient and participated in the time-out.: Yes Procedure Operation Date: 09/14/22 09:45 Actual Procedures p Left Total Knee Arthroplasty, Cemented(Left),increased difficulty due to leg obesity,application superficial wound vac - Cosme Christine MD Surgeon Cosme Christine MD Batch Mixer Operator cassidy PADILLA Estimated Blood Loss 5 Findings Consistent with Post-Op Diagnosis Specimens bone cuts Drains Hemovac Drain Anesthesia Type MAC Spinal Regional Complications none Disposition Disposition: Recovery Room Overlapping Procedure I was immediately available: during the entire case.
--- NOTE | 2022-09-14 13:33 | Operative Report ---
Post Operative Report Pre & Post Diagnosis Operation Date: 09/14/22 09:45 Pre-Op Diagnosis: Left knee osteoarthritis, focal morbid obesity left lower extremity. Post-Op Diagnosis: Left knee osteoarthritis, focal morbid obesity left lower extremity I identified the patient and participated in the time-out.: Yes Procedure Operation Date: 09/14/22 09:45 Actual Procedures p Left Total Knee Arthroplasty, Cemented(Left), increased difficulty due to focal morbid obesity and application of a superficial wound VAC- Cosme Christine MD Surgeon Cosme Christine MD Farmworker [employer] cassidy PADILLA Estimated Blood Loss 5 Findings Consistent with Post-Op Diagnosis Specimens Bone cuts Drains 2 Hemovac Anesthesia Type MAC Spinal Regional Complications none Disposition Disposition: Recovery Room Indications 76-year-old female with end-stage osteoarthritis left knee failed conservative management. Has successful right knee replacement and wants proceed with left knee replacement. Radiographs demonstrates a valgus knee [id number] lateral compartment Description of Procedure Patient was taken to the operating room placed supine on the operating table and anesthetized under spinal MAC regional block anesthesia. Exam under anesthesia demonstrated substantial obesity around the knee and thigh with a large fold of tissue right over the patella when the knee comes to full extension. There was no instability. Range of motion 0 through 125 degrees.. A pneumatic tourniquet was placed about significantly obese thigh of the left lower extremity. The left lower extremity was prepped and draped in usual sterile fashion. The leg was elevated exsanguinated with an Esmarch bandage and the pneumatic tourniquet was raised to 350 mm mercury. An anterior incision was made across the left knee. The skin was incised longitudinally and very deep layers of the subcutaneous fat were incised and subcutaneous flaps were elevated and an incision was made through the medial retinaculum extending up into the mid third of the quadriceps tendon and extended down to the medial tibial tubercle. Intra-articular findings demonstrated [id number] lateral compartment chronic ACL tear moderate patellofemoral osteoarthritis. The knee was exposed by excising the infrapatellar fat pad, excising the meniscal remnants and anterior cruciate ligament. Any inflamed synovial tissue was resected. The fat pad over the anterior femur was resected for placement of the component in that area. The lateral synovial bands were release. The femur was exposed. The custom femoral cutting block was pinned in position. The distal femoral cutting block was applied. The distal femoral cut was made with the oscillating saw. The size 8, 4-in-1 cutting block was placed. The anterior and posterior chamfer cuts were made. The knee was extended and a subperiosteal peel lateral release was performed around the patella. The patella width was measured and width was reproduced using freehand cut technique. The 35 millimeter symmetrical patella was used. 3 drill holes are made for the pegs. The tibia was exposed. A custom tibial cutting block was positioned and drill holes were made for the cutting guide. Cutting guide was placed and the proximal cut was made with the oscillating saw. All osteophytes were resected. The lamina ladies' hat trimmer was used to assess ligamentous balance and the ligaments were balanced in extension and flexion. No releases were required. The tibia was reexposed and measured for a size E tibial component. This was externally rotated in line with the tibial tubercle and the fixation pins were drilled. The proximal tibia was fashioned with the drill and punch. The size 8 CR femoral trial was inserted. The trial MC inserts were used. The 11 mm insert gave balanced ligaments through full range of motion. The patella tracked centrally. the trials were removed. The orthomix anesthetic cocktail was injected per protocol. The knee was then copiously irrigated with pulsatile lavage saline solution. The final components were cemented with Refobacin bone cement. The final components were Vicente Bi omet persona size 8 narrow left CR femoral component, a left EE tibial component with a 11 MC the left tibial polyethylene component and a 35 symmetrical patella polyethylene patella component. After the cement cured with the knee in full extension the Betadine soak was used per protocol. The knee joint was copiously irrigated with pulsatile lavage saline solution . 2 drains were brought out la terally and connected to a Hemovac. The quadriceps tendon and medial retinaculum were closed with interrupted [id number] #1 Vicryl sutures. The knee was taken through a full range of motion which was 0 through 130 degrees and the repair was secure. The subcutaneous tissues were closed in layers with 2-0 Vicryl sutures and skin was closed with pam.A Jeff and Acticoat superficial wound VAC was applied and the patient tolerated the procedure well. Qasim PADILLA my physician sugar laboratory assistant participated as carpenter's assistant and was an integral part in all aspects of the procedure, he assisted in soft tissue retraction, instrument management ,leg positioning, the closure, application of superficial wound VAC and will participate in the postoperative care of the patient. There was increased difficulty with exposure and wound closure adding 25 to 30 minutes of the procedure time due to the substantial obesity. I attest to the content of the Intraoperative Record and any orders documented therein. Any exceptions are noted below.
--- NOTE | 2022-09-14 14:10 | Anesthesiology Progress Note ---
Date of Service September 14, 2022 Anesthesia Post Procedure Vital Signs Vital Signs: Temp Pulse Pulse Resp BP BP Pulse Ox 09/14/22 13:50 49 L 16 141/83 H 95 09/14/22 13:40 51 L 19 134/84 93 09/14/22 13:30 47 L 17 166/90 H 97 09/14/22 13:20 36.3 C L 52 L 16 129/81 94 09/14/22 07:54 36.5 C 57 L 20 162/83 H 95 O2 Del Method O2 Flow Rate 09/14/22 13:50 Nasal Cannula 2 09/14/22 13:40 Room Air 09/14/22 13:30 Oxymask 3 09/14/22 13:20 Oxymask 4 09/14/22 07:54 Room Air Transfer of Care Handoff Completed per policy Notes Mental Status: alert / awake / arousable and participated in evaluation Nausea / Vomiting: adequately controlled Pain: adequately controlled Airway Patency, RR, SpO2: stable & adequate BP & HR: stable & adequate Hydration State: stable & adequate Neuraxial Anesthesia: was administered and sensory block is resolving Anesthetic Complications: no major complications apparent and Pt Satisfied with anesthetic care
[2022-09-14] MEDS ORDERED: HYDROmorphone INJ 0.5 MG/0.5 ML SYR IV PRN (14:51)
[2022-09-14] MEDS ORDERED: MAGNESIUM HYDROXIDE SUSP 30 ML UDC PO PRN (14:51)
[2022-09-14] MEDS ORDERED: VANCOMYCIN CONSULT ACTIVE PRN (14:51)
[2022-09-14] MEDS ORDERED: ONDANSETRON INJ 2 MG/ML 2 ML VIAL IV PRN (14:51)
[2022-09-14] MEDS ORDERED: bisacodyL 10 MG SUPP PR PRN (14:51)
[2022-09-14] MEDS ORDERED: NALOXONE HCL 0.4 MG/1 ML VIAL/CARP IV PRN (14:51)
[2022-09-14] MEDS ORDERED: oxyCODONE HCL IR 5 MG TAB (IMMEDIATE RELEASE) PO PRN (14:51)
[2022-09-14] MEDS ORDERED: METOCLOPRAMIDE HCL INJ 5 MG/ML 2 ML VIAL IV PRN (14:51)
[2022-09-14] MEDS: SODIUM CHLORIDE 0.9% 1000ML 1,000 ML IV SCH (15:07)
[2022-09-14] MEDS: ACETAMINOPHEN 500 MG TAB PO SCH ×2 (15:13→21:27)
--- NOTE | 2022-09-14 16:33 | Hospitalist Consultation ---
Date of Consultation September 14, 2022 Assessment & Plan (1) Primary osteoarthritis of left knee: s/p left knee arthroplasty with Dr Christine EBL [address] SCDs in place Continue Xarelto (2) HTN (hypertension): Chronic stable Continue metoprolol (3) Atrial fibrillation: Chronic and stable continue flecainide Most recent echo per [facility] cardiology in [place] 07/2021 EF 60% mild to moderate MR and mild TR (4) Ductal carcinoma in situ (DCIS) of breast: chronic Anastrozole 1mg q AM Continue to follow with oncology Supervising Physician Co-Signing Physician Notes During face to face encounter, I obtained a brief physical examination, discussed her past medical history. I discussed plan of care with NIA Ahumada. I reviewed above note and agree with it except for the following: will resume her home meds for her hypertension and a fib. Aman monitor overnight and if patient remains stable, will sign off. History of Present Illness Reason for Consultation: post op management Requesting Physician: Dr Christine Attending Physician: Cosme Christine MD History of Present Illness Lorena Krishnan is a 76 year old female with a past medical history of paroxysmal A fib on flecainide, and xarelto, HTN on Metoprolol, vitamin D deficiency, hx of breast cancer on Anastrozole who was admitted for elective left knee arthroplasy. Patient had right knee done last year. EBL 5 Allergies Allergy/AdvReac Type Severity Reaction Status Date / Time penicillin G Allergy Severe rash Verified 09/22/22 09:59 Sulfa (Sulfonamide Allergy Severe rashes Verified 09/22/22 09:59 Antibiotics) Home Medications Medication Instructions Recorded Confirmed Type flecainide 50 mg tablet 50 mg PO BID 08/11/20 09/22/22 History metoprolol succinate 25 mg 25 mg PO QAM 08/11/20 09/22/22 History tablet,extended release 24 hr rivaroxaban 20 mg tablet (Xarelto) 20 mg PO QAM 03/16/21 09/22/22 History anastrozole 1 mg tablet 1 mg PO QAM 08/25/22 09/22/22 History cholecalciferol (vitamin D3) 25 25 mcg PO BID 08/25/22 09/22/22 History mcg (1,000 unit) capsule acetaminophen 500 mg tablet 1,000 mg PO Q8 #60 tabs 09/15/22 09/22/22 Rx (Tylenol Extra Strength) oxycodone 5 mg tablet 5 - 10 mg PO .Q4h-6h PRN pain #30 09/15/22 09/22/22 Rx tabs Patient History Medical History Atrial fibrillation On Xarelto/Flecainide daily---follows with Dr. Duran Ductal carcinoma in situ (DCIS) of left breast Fall 2021- S/p partial mastectomy and XRT No chemo ; no current issues Left arm restriction History of COVID-19 Diagnosed 03/2020 @ [facility] [place]--severe diarrhea/loss of appetite/loss of taste/headache/cough/dehydration--no issues now HTN (hypertension) Controlled, stable per pt Hx MRSA infection YEARS AGO IN A WOUND, [place]. On anticoagulant therapy Xarelto daily Vertigo - Chronic per PCP note, improved with physical therapy per pt, occasional intermittent dizziness and imbalance with positional changes - Stable at this time per patient - no current issues Surgical History H/O section History of bilateral cataract extraction History of colonoscopy History of dilatation and curettage History of left inguinal hernia repair History of lumpectomy of left breast History of tooth extraction History of total right knee replacement History of umbilical hernia repair History of varicose vein ligation History of wisdom tooth extraction Family History Mother Heart disease Breast cancer Hypertension Father Heart disease Hypertension Other No family history of adverse response to anesthesia Denies family history of Diabetes Alzheimer disease Dementia Myocardial infarction Congenital kidney disease Lung cancer COPD (chronic obstructive pulmonary disease) Stroke Asthma Social History Smoking Status: Never smoker Second Hand Exposure: Yes (HX); Do You Dip or Chew Tobacco: No; Hx Alcohol Use: Yes Hx Substance Use: No Preferred Language: Lithuanian Communication Ability: Effective Hearing Ability: Normal Stratigraphy Teacher Required: No Beliefs That Will Affect Care: None marital status: Single Current Living Situation: Spouse and Family current occupational status: retired How many Children do You have: 0 Feels Safe at Home: Yes Childhood Exposure to Second-Hand Smoke: Yes Diet: regular caffeine: Yes Dental Care, Regularly: Yes Physical Activity Frequency: 1-2 Times per Week Seatbelt Use: always Sunscreen Use: No Assistive Devices: Bedside Commode and Walker Review of Systems Review of Systems: Patient denies any CP, SOB, Dyspnea, abdominal pain, nausea, vomiting, changes in her bowels, unintentional weight loss, headache congestion or cough. all other ROS negative unless + above. Physical Exam Constitutional: WD/WN, vitals as above Neck: trachea midline, no thyromegaly Respiratory: normal respiratory effort, lungs clear to auscultation Cardiovascular: RRR, no murmur, no edema Extremities: normal capillary refill; no calf tenderness Gastrointestinal (Abdomen): normal bowel sounds, soft, nontender, no hepatosplenomegaly Musculoskeletal: SCDs in place and left knee with surgical dressing clean and dry with GENNARO drain in place Psychiatric: A+Ox3, euthymic affect Results & Data Results & Data Vital Signs (Past 12 Hours) Vital Signs Temp Pulse Pulse Resp BP BP Pulse Ox 09/14/22 15:30 36.4 C L 56 L 16 118/78 97 09/14/22 15:00 56 L 16 112/69 94 09/14/22 14:10 36.2 C L 52 L 12 135/86 94 09/14/22 14:00 49 L 16 142/81 H 95 09/14/22 13:50 49 L 16 141/83 H 95 09/14/22 13:40 51 L 19 134/84 93 09/14/22 13:30 47 L 17 166/90 H 97 09/14/22 13:20 36.3 C L 52 L 16 129/81 94 09/14/22 07:54 36.5 C 57 L 20 162/83 H 95 O2 Del Method O2 Flow Rate 09/14/22 15:30 Nasal Cannula 2 09/14/22 15:00 Nasal Cannula 2 09/14/22 14:10 Nasal Cannula 2 09/14/22 14:00 Nasal Cannula 2 09/14/22 13:50 Nasal Cannula 2 09/14/22 13:40 Room Air 09/14/22 13:30 Oxymask 3 09/14/22 13:20 Oxymask 4 09/14/22 07:54 Room Air PG Care Time/CCT Total # of Minutes Spent Total Time Spent with Patient: Total time spent is greater than 50% in coordination of care (as documented) at patient's floor/unit and/or counseling patient: Coding Level of Care Code 06473 IN/OBS CONSULT LVL 2,35M Diagnoses Primary osteoarthritis of left knee M17.12 HTN (hypertension) I10 Atrial fibrillation I48.91 Ductal carcinoma in situ (DCIS) of breast D05.10
--- NOTE | 2022-09-14 17:18 | XRay Report ---
XR knee LT 1 or 2V routine HISTORY: 76 years-old Female Surgical Post Op left knee arthroplasty COMPARISON: None TECHNIQUE: 2 views of the left knee FINDINGS: Total joint arthroplasty and patellar resurfacing with anterior midline skin pam, surgical draina ge catheter, expected postoperative soft tissue swelling with deep tissue air. Arterial calcification s. No acute fracture, dislocation or unexpected opaque foreign body. IMPRESSION: Total joint arthroplasty with expected postoperative changes. ACT 112: Negative or not required by law. The above report was generated using voice recognition software. It may contain grammatical, syntax o r spelling errors. Electronically signed by: Luc Shea M.D. 09/14/2022 5:16 PM
[2022-09-14] MEDS: DOCUSATE SODIUM 100 MG CAP PO SCH (20:19)
[2022-09-14] MEDS: CHOLECALCIFEROL 1,000 UNITS 25 MCG TAB PO SCH (20:19)
[2022-09-14] MEDS: FLECAINIDE ACETATE 100 MG TABLET PO SCH (20:20)
[2022-09-14] MEDS ORDERED: VANCOMYCIN HCL 1,500 MG in SODIUM CHLORIDE 0.9% 500 ML IV SCH (21:00)
[2022-09-14] MEDS ORDERED: SENNA 8.6 MG TAB PO SCH (21:00)
[2022-09-15] MEDS: SODIUM CHLORIDE 0.9% 1000ML 1,000 ML IV SCH (01:37)
[2022-09-15] MEDS: ACETAMINOPHEN 500 MG TAB PO SCH (06:26)
[2022-09-15 06:41] LABS: Hemoglobin 10.2 g/dl (12.0-16.0); Mean Corpuscular Hemoglobin 32.7 pg (25.0-34.0); Mean Corpuscular Volume 96.2 fL (80.0-100.0); Mean Platelet Volume 10.1 fL (9.4-12.4); Platelet Count 184 K/uL (130-400); Red Blood Count 3.12 M/uL (4.20-5.40); White Blood Count 12.19 K/ul (4.8-10.8)
--- NOTE | 2022-09-15 07:30 | Orthopedic Progress Note ---
Date of Service September 15, 2022 Assessment & Plan (1) Primary osteoarthritis of left knee: Plan: POD#1 Left TKA -PT/OT -Pain management as written -DVT prophylaxis-SCDs, TEDs, Xarelto 20mg daily -AM labs-Hgb 10.2 from 14 preop, acute blood loss anemia due to surgical loss vs dilutional. Chemistries at baseline -D/C planning-Patient planning on OPPT. Plan on discharge today after PT if goes well and pain controlled. Admission and Anticipated Discharge Date Admission Date: September 14, 2022 Subjective Patient is POD1 left TKA. Doing well this morning. minimal pain. No other complaints. Denies chest pain, sob, dizziness, headache, n/v/d. Review of Systems Review of Systems: All systems reviewed & are unremarkable except as noted in Subjective Physical Exam Physical Exam: Left knee: Dressing is c/d/i, toes mobile with good dorsiflexion, no calf tenderness. Able to SLR. Distally n/v status and sensation grossly intact. Constitutional: WD/WN, vitals as above Results & Data Vital Signs (Past 12 Hours) Vital Signs Temp Pulse Resp BP Pulse Ox O2 Del Method 09/15/22 07:05 Room Air 09/15/22 06:55 36.7 C 85 18 144/85 H 98 Room Air 09/15/22 02:49 36.7 C 62 18 112/68 93 Room Air 09/14/22 22:28 36.5 C 60 18 105/68 95 Room Air 09/14/22 19:35 36.6 C 62 18 113/72 96 Room Air Laboratory Results Lab Results 09/14/22 09/15/22 Range/Units 07:35 06: WBC 12.19 H (4.8-10.8) K/ul RBC 3.12 L (4.20-5.40) M/uL Hgb 10.2 L (12.0-16.0) g/dl Hct 30.0 L (37.0-47.0) % MCV 96.2 (80.0-100.0) fL MCH 32.7 (25.0-34.0) pg MCHC 34.0 (32.0-36.0) g/dL RDW Std Deviation 42.0 (36.4-46.3) fL RDW Coeff of Anju 12.0 (11.5-14.5) % Plt Count 184 (130-400) K/uL MPV 10.1 (9.4-12.4) fL SARS-CoV-2, RNA, NAAT NEGATIVE (NEGATIVE)
[2022-09-15] MEDS: DOCUSATE SODIUM 100 MG CAP PO SCH (07:34)
[2022-09-15] MEDS: FLECAINIDE ACETATE 100 MG TABLET PO SCH (07:34)
[2022-09-15] MEDS: CHOLECALCIFEROL 1,000 UNITS 25 MCG TAB PO SCH (07:35)
[2022-09-15 08:20] LABS: Calcium 8.8 mg/dl (8.6-10.3); Potassium 4.2 mmol/L (3.5-5.1)
[2022-09-15 08:26] LABS: BUN Creatinine Ratio 27.4 (10-20); Creatinine Clr Calc Pharmacy 93.1 ml/min; Est GFR (African American) 101.5 ml/min; Est GFR (Non-African American) 87.6 ml/min
[2022-09-15] MEDS ORDERED: METOPROLOL SUCC 25MG EXT REL TAB PO SCH (09:00)
[2022-09-15] MEDS ORDERED: ANASTROZOLE 1 MG TAB PO SCH (09:00)
[2022-09-15] MEDS ORDERED: MULTIVITAMIN TAB PO SCH (09:00)
[2022-09-15] MEDS ORDERED: RIVAROXABAN 20 MG TAB PO SCH (16:30)
--- NOTE | 2022-09-16 08:13 | Discharge Summary ---
Date of Service September 16, 2022 Admission HPI Per Admitting Provider 76yo female with PMHx significant for HTN, a fib, prior right TKA who presents with ongoing left knee pain. Patient has failed conservative measures. Pain is interfering with daily activity. She would like to proceed with knee replacement. Patient denies headaches, sweats, fevers, chills, double vision, blurred vision, cough, sore throat, dysphagia, chest pain, sob, wheezing, n/v/d/c, numbness, tingling, fatigue, urinary symptoms, mood disorders. ROS positive for left knee pain and stiffness. Admission Exam Per Admitting Provider Constitutional: well developed and well nourished; no acute distress Eyes: PERRL, conjunctivae normal, anicteric sclerae ENMT: external ear and nose normal, oropharynx normal Neck: trachea midline, no thyromegaly Respiratory: normal respiratory effort, lungs clear to auscultation Cardiovascular: Rate/Rhythm: regular rate and + irregularly irregular Heart Sounds: no murmur Musculoskeletal: Left knee: Valgus alignment. Tenderness medially and laterally. Moderate swelling/lymphedema. Stable to valgus and varus stress. ROM 0-125 degrees. Skin: no rashes, warm and dry Neurologic: patellar DTR's 2+ bilat, sensation intact Psychiatric: A+Ox3, euthymic affect Principal Diagnosis Left knee OA Discharge Exam Left knee: Dressing is c/d/i, toes mobile with good dorsiflexion, no calf t enderness. Able to SLR. Distally n/v status and sensation grossly intact. Discharge Data Allergies Allergy/AdvReac Type Severity Reaction Status Date / Time penicillin G Allergy Severe rash Verified 09/14/22 07:51 Sulfa (Sulfonamide Allergy Severe rashes Verified 09/14/22 07:51 Antibiotics) Consultations 09/14/22 05:00 Consult Hospitalist Routine Procedures Performed Operation Date: 09/14/22 09:45 Actual Procedures p Left Total Knee Arthroplasty, Cemented(Left) - Cosme Christine MD Ordered Studies 09/14/22 05:00 US - OR guided needle placemen Routine Hospital Course (1) Primary osteoarthritis of left knee: POD#1 Left TKA -PT/OT -Pain management as written -DVT prophylaxis-SCDs, TEDs, Xarelto 20mg daily -AM labs-Hgb 10.2 from 14 preop, acute blood loss anemia due to surgical loss vs dilutional. Chemistries at baseline -D/C planning-Patient planning on OPPT. Plan on discharge today after PT if goes well and pain controlled. Lab Results 09/14/22 09/15/22 09/15/22 Range/Units 07:35 06:23 06:23 WBC 12.19 H (4.8-10.8) K/ul RBC 3.12 L (4.20-5.40) M/uL Hgb 10.2 L (12.0-16.0) g/dl Hct 30.0 L (37.0-47.0) % MCV 96.2 (80.0-100.0) fL MCH 32.7 (25.0-34.0) pg MCHC 34.0 (32.0-36.0) g/dL RDW Std Deviation 42.0 (36.4-46.3) fL RDW Coeff of Anju 12.0 (11.5-14.5) % Plt Count 184 (130-400) K/uL MPV 10.1 (9.4-12.4) fL Sodium 137 (136-145) mmol/L Potassium 4.2 (3.5-5.1) mmol/L Chloride 106 (98-107) mmol/L Carbon Dioxide 26 (21-32) mmol/L Anion Gap 5 (3-11) BUN 17 (6-23) mg/dl Creatinine 0.62 (0.6-1.2) mg/dl Est Cr Clr Drug Dosing 93.1 ml/min Est GFR ( Amer) 101.5 ml/min Est GFR (Non-Af Amer) 87.6 ml/min BUN/Creatinine Ratio 27.4 H (10-20) Glucose 122 H (70-99(Fasting)) mg/dl Calcium 8.8 (8.6-10.3) mg/dl SARS-CoV-2, RNA, NAAT NEGATIVE (NEGATIVE) Total Time Total Time Spent Total Time Spent (In Minutes): 20 Discharge Plan Discharge Items Patient Disposition: Home - Self-Care Reason For Visit: Left Knee Osteoarthritis Discharge Diagnosis: Left knee osteoarthritis Activity: Per Instructions section Non-emergency contact: Surgeon Call non-emergency contact if: you have any medication questions, your pain is not controlled, your pain is concerning for you, you have a fever, your temperature is above 101, your wound has increased redness and your wound has increased drainage Follow-up/Referrals: Debbie Moore DO [Primary Care Provider] - 09/22/22 10:00 pm (APPOINTMENT WITH DR DELVALLE) Diet: Regular Addtl Attending Provider Instructions: ACTIVITY RECOMMENDATIONS: SELF CARE INSTRUCTIONS AFTER TOTAL KNEE REPLACEMENT A. You may need to continue a physical therapy program after discharge from the hospital. There are several options available to you. Your doctor will assist you in selecting the best one for you. 1. An out-patient facility 2 to 3 times a week for therapy or home therapy. 2. Continue working on all exercises taught to you in the hospital. Your goals should be to increase bending of your knee to 90 degrees and beyond and to fully straighten your knee. B. You may progress at your own pace from walking with a walker or crutches to a cane; then to no assistive devices. C. Make walking a part of your daily routine. Be up as much as comfortable with rest periods throughout the day. Rest with leg elevation is very important. Use the ice wrap frequently for the first 3-4 weeks. D. There are no restrictions on activities. You may ride in a car, shop, participate in choir teacher and all social activities. E. Wear the long elastic stockings (SAMI hose) 20 hours a day for 2 weeks after surgery. They can be removed several times a day for laundering and for a bath. F. You may shower, no tub baths until cleared by your doctor. SPECIAL CARE INSTRUCTIONS: VERY IMPORTANT TO READ AND REVIEW A. There are a few signs you need to watch for after you are home. Call [facility] if you notice any of the followin. Increased severe knee pain. Some pain is expected especially when you exercise. 2. Increased swelling in your leg or knee; pain or swelling of the calf mus darlene in either lower leg. 3. Any fluid drainage from the incision. 4. Shortness of breath or chest pain. B. Please call [facility] at if you have any concerns or questions about your operation or recovery. The doctor or his nurse will return your call promptly. C. You must take antibiotics before dental work, bladder, bowel or other surgery. Your doctor will provide you with a permanent care to carry describing this precaution. IMPORTANT: * REMEMBER TO TAKE ASPIRIN, 81 MG, TWICE DAILY FOR 4 WEEKS UNLESS OTHERWISE DIRECTED. THIS IS YOUR BLOOD THINNER. * HIGH RISK PATIENTS MAY BE PRESCRIBED A STRONGER BLOOD THINNER. THIS WILL BE PROVIDED AT DISCHARGE. * CALL IF INCREASED PAIN, REDNESS, DRAINAGE OR FEVER GREATER THAT 101. * WEAR SAMI HOSE 20 HOURS PER DAY FOR 2 WEEKS. This is a large suction dressing covering your incision. This will help pull any excess drainage from the wound and allow your incision to heal properly. You may shower with this if you can keep the unit outside of the shower. If any bleeding or leakage is noted please call your doctor's office. This will remain on your incision for 7 days and then should be removed. This can be done yourself or by the home nursing staff if applicable. The entire unit is disposable once removed. Once removed, keep incision clean and dry. If redness or drainage is noted, please call your surgeon. IF INCISION IS LEAKING THROUGH DRESSING, CALL THE OFFICE . FOLLOW UP VISIT: If appointment is not already scheduled: Please call [facility] to make a follow-up appointment for 2 weeks after your surgery at . Stand-Alone Forms: My [facility], Pain - Opioid Pain Management, Smoking Cessation Medications and DC Order Prescriptions: New acetaminophen [Tylenol Extra Strength] 500 mg Tablet 1,000 mg PO Q8 Qty: 60 0RF oxycodone 5 mg Tablet 5 - 10 mg PO .Q4h-6h MDD 6 PRN (Reason: pain) Qty: 30 0RF Rx Instructions: Ongoing therapy, Dr. Christine supervising Continued metoprolol succinate 25 mg tablet extended release 24 hr 25 mg PO QAM flecainide 50 mg tablet 50 mg PO BID anastrozole 1 mg tablet 1 mg PO QAM cholecalciferol (vitamin D3) 25 mcg (1,000 unit) capsule 25 mcg PO BID Xarelto 20 mg Tablet 20 mg PO QAM Discontinued acetaminophen 650 mg Tablet Extended Release 1,300 mg PO Q8H PRN (Reason: Pain) Patient Comments: USUALLY TAKES 2 IN THE MORNING AND 2 AT BEDTIME. Discharge Orders: Discharge Order (Routine); Ordered 09/15/22 Ordered By: Jonathan Smaniotto Admission Data Admit Date/Time: 09/14/22 13:20 Attending Provider: Cosme Christine Admit Provider: Cosme Christine Primary Care Provider: Debbie Moore Other Providers: Eduin Kevin Other Interventions: Discharge Summary Assessment (RN) Last Done: 09/15/22 10:13
== END 2022-09-15 12:46 | disposition home or self-care (01) ==
LOC: 3E 07:04 → ASU 07:04
DX: Z79.01 Long term (current) use of anticoagulants; Z79.899 Other long term (current) drug therapy; Z86.16 Personal history of COVID-19; M17.12 Unilateral primary osteoarthritis, left knee; Z86.14 Personal history of Methicillin resistant Staphylococcus aureus infection; Z96.651 Presence of right artificial knee joint; Z20.822 Contact with and (suspected) exposure to COVID-19; Z88.0 Allergy status to penicillin; Z88.2 Allergy status to sulfonamides; I48.0 Paroxysmal atrial fibrillation; D05.12 Intraductal carcinoma in situ of left breast